=== PATIENT | female | born 1995 ===

== ENCOUNTER 2016-07-26 03:34 | Emergency (ER) | payer MEDICAID ==
[2016-07-26] MEDS ORDERED: Oxycodone/Acetaminophen 5/325 mg Tab PO STA (03:55)
--- NOTE | 2016-07-26 03:58 | ED PDOC ---
HPI: General Adult Time Seen by Provider: 07/26/16 03:56 Chief Complaint (Provider): toothache History Per: Patient History/Exam Limitations: no limitations Additional Complaint(s): 21yo F in ED for eval of tooth ache to upper back molar x 2d-pt has tried naproxen, salt water gargle with limited relief. pt denies fever chills, nausea or vomiting denies sore throat or drainage from gum/bleeding of gums. made appt with dentist 1 week from now. Past Medical History Reviewed: Historical Data, Nursing Documentation, Vital Signs - Medical History PMH: Migraine - Family History Family History: States: Unknown Family Hx - Home Medications Home Medications: Ambulatory Orders Medication Instructions Recorded Oxycodone HCl/Acetaminophen 1 tab PO Q6 PRN #18 tab 09/20/15 [Percocet 325 mg-5 mg] Acetaminophen with Codeine 1 tab PO Q6 #10 tab 07/26/16 [Tylenol with Codeine No. 3 300 mg-30 mg] - Allergies Allergies/Adverse Reactions: Allergies Allergy/AdvReac Type Severity Reaction Status Date / Time No Known Allergies Allergy Verified 09/20/15 05:15 Review of Systems ROS Statement: Except As Marked, All Systems Reviewed And Found Negative ENT: Positive for: Mouth Pain Physical Exam - Reviewed Nursing Documentation Reviewed: Yes Vital Signs Reviewed: Yes - Physical Exam Appears: Positive for: Well, Non-toxic, No Acute Distress Head Exam: Positive for: ATRAUMATIC, NORMAL INSPECTION, NORMOCEPHALIC Skin: Positive for: Normal Color, Warm, DRY ENT: Positive for: Other (mouth:upper back molar no broken dental. no draiange from gums no gum bleeding) Cardiovascular/Chest: Positive for: Regular Rate, Rhythm Respiratory: Positive for: CNT, Normal Breath Sounds Neurologic/Psych: Positive for: Alert, Oriented Medical Decision Making Medical Decision Making: dx: toothache/cavity advised to f.u with dental clinic given T#3 for pain control. made aware its to tret acute pain advised on addictive components of Rx narcotic pt understands. Disposition - Clinical Impression Clinical Impression: Dental caries - Patient ED Disposition Is Patient to be Admitted: No Counseled Patient/Family Regarding: Diagnosis, Need For Followup, Rx Given - Disposition Disposition: Routine/Home Disposition Time: 04:02 Condition: STABLE Prescriptions: Acetaminophen with Codeine [Tylenol with Codeine No. 3 300 mg-30 mg] 1 tab PO Q6 #10 tab Instructions: Dental Caries (ED) Forms: [facility] ED School/Work Excuse
[2016-07-26 04:00] VITALS: BP 131/71; PULSE 103; RESP 16; TEMP 98.2; O2SAT 100
[2016-07-26] MEDS ORDERED: Oxycodone/Acetaminophen 5/325 mg Tab ONE (04:04)
== END 2016-07-26 04:17 | disposition home or self-care (01) ==
LOC: H.ER 03:34
DX: K02.9 Dental caries, unspecified (principal)

== ENCOUNTER 2016-11-13 00:03 | Emergency (ER) | payer MEDICAID ==
[2016-11-13 00:04] VITALS: BMI 21.5
[2016-11-13 00:17] VITALS: BP 123/76; PULSE 95; RESP 16; TEMP 98.6; O2SAT 100
[2016-11-13] MEDS ORDERED: Lidocaine 1% Inj (20ml) IJ STA (01:00)
[2016-11-13] MEDS ORDERED: Lidocaine 1% Inj (20ml) ONE (01:03)
--- NOTE | 2016-11-13 01:19 | ED PDOC ---
HPI: Wound Care - HPI Time Seen by Provider: 11/13/16 00:21 Chief Complaint (Nursing): Finger,Hand,&Wrist Chief Complaint (Provider): left hand 4th digit laceration History Per: Patient History Of Present Illness: 21 y/o female presents with laceration to left hand 4th digit, sustained 1 hour prior to arrival. Patient states she accidentally cut finger with a knife while at work. Denies numbness/weakness left upper extremity, limitation of movement. Tetanus up to date. Past Medical History Reviewed: Historical Data, Nursing Documentation, Vital Signs Vital Signs: Last Vital Signs Temp 98.6 F 11/13/16 00:14 Pulse 95 H 11/13/16 00:14 Resp 16 11/13/16 00:14 BP 123/76 11/13/16 00:14 Pulse Ox 100 11/13/16 00:14 - Medical History PMH: Migraine Denies: Chronic Kidney Disease - Family History Family History: States: Unknown Family Hx - Home Medications Home Medications: Ambulatory Orders Medication Instructions Recorded Oxycodone HCl/Acetaminophen 1 tab PO Q6 PRN #18 tab 09/20/15 [Percocet 325 mg-5 mg] Acetaminophen with Codeine 1 tab PO Q6 #10 tab 07/26/16 [Tylenol with Codeine No. 3 300 mg-30 mg] - Allergies Allergies/Adverse Reactions: Allergies Allergy/AdvReac Type Severity Reaction Status Date / Time No Known Allergies Allergy Verified 11/13/16 00:14 Review of Systems ROS Statement: Except As Marked, All Systems Reviewed And Found Negative Musculoskeletal: Positive for: Hand Pain (left hand 4th digit laceration) Physical Exam - Reviewed Nursing Documentation Reviewed: Yes Vital Signs Reviewed: Yes - Physical Exam Appears: Positive for: Well, Non-toxic, No Acute Distress Head Exam: Positive for: ATRAUMATIC, NORMAL INSPECTION, NORMOCEPHALIC Skin: Positive for: Normal Color Pulses-Radial (L): 2+ Pulses-Radial (R): 2+ Extremity: Positive for: Normal ROM, Other (2 cm "U" skin flap laceration distal sanchez left hand 4th digit. Minimal active bleeding. DIstal NV, motor intact) Neurologic/Psych: Positive for: Alert, Oriented. Negative for: Motor/Sensory Deficits - ECG O2 Sat by Pulse Oximetry: 100 Procedure: Wound Repair - Time Performed Time Performed: 01:00 - Time Out Time Out: Side verified, Site verified, Patient ID confirmed, Sterile procedures obs. - Procedure Procedure: Wound Repair: right 4th digit - Consent Obtained Consent obtained: Verbal - Performed by Performed by: Mid-level Provider - Indications Indication(s):: Laceration - Location Finger:: Right, Ring Dimensions Length cm: 2cm Dimensions width cm: 0.2cm Depth:: Epidermis - Anesthetic Technique Local/Regional Anesthetic:: Lidocaine 1% - Debris Debris:: None - Irrigated Irrigated with ml of normal saline: 200mL - Complexity Complexity:: Simple (one layer) - Wound repair method Sutures:: # (2), Size (4'0), Type (nylon), Technique (interrupted) - Muscle repiar layer closed with Muscle repair layer closed with:: Wound well approximated, Abx ointment applied , Dressing applied, Tetanus up to date - Patient tolerated procedure Patient Tolerated Procedure:: Well Medical Decision Making Medical Decision Making: Patient educated on wound care, suture removal 7-8 days. Neosporin daily. Return to ED for signs of infection as discussed. Disposition - Clinical Impression Clinical Impression: Finger laceration - Patient ED Disposition Is Patient to be Admitted: No Counseled Patient/Family Regarding: Diagnosis, Need For Followup - Disposition Disposition: Routine/Home Disposition Time: 01:21 Condition: GOOD Additional Instructions: Suture removal 7-8 days. Apply neosporin daily. Return to ED for redness/swelling/drainage from site, fever, or other concerning symptoms. Instructions: Laceration (ED), Care For Your Stitches (ED)
== END 2016-11-13 01:30 | disposition home or self-care (01) ==
LOC: H.ER 00:03
DX: S61.215A Laceration without foreign body of left ring finger without damage to nail, initial encounter (principal); W26.0XXA Contact with knife, initial encounter; Y99.0 Civilian activity done for income or pay

== ENCOUNTER 2017-04-22 13:12 | Emergency (ER) | payer MEDICAID ==
[2017-04-22 13:12] VITALS: BMI 21.5
[2017-04-22 13:57] VITALS: RESP 16
[2017-04-22] MEDS ORDERED: Iohexol 240 (50 ml) PO ONE (14:20)
[2017-04-22] MEDS ORDERED: Sodium Chloride 0.9% 1,000 ML IV STA (14:20)
--- NOTE | 2017-04-22 14:20 | ED PDOC ---
HPI: Female Pain Time Seen by Provider: 04/22/17 14:08 Chief Complaint (Nursing): Female Genitourinary Chief Complaint (Provider): Abd pain History Per: Patient History/Exam Limitations: no limitations Onset/Duration Of Symptoms: Days (1 week) Current Symptoms Are (Timing): Still Present Additional Complaint(s): Pt. with urgency of urination for 3 months. No dysuria. Has freq of urination. For 1 week has R lower abd pain. No weakness, back pain, dyspnea, chest pain, headaches, dizziness. No nausea, vomit, diarrhea. No vaginal bleeding. Was dx with uti in Feb but forgot to start antibiotics. Past Medical History Reviewed: Nursing Documentation, Vital Signs Vital Signs: Last Vital Signs Temp 99.4 F 04/22/17 13:49 Pulse 62 04/22/17 13:49 Resp 16 04/22/17 13:49 BP 116/66 04/22/17 13:49 Pulse Ox 100 04/22/17 13:49 - Medical History PMH: Denies: Chronic Kidney Disease - Surgical History Surgical History: No Surg Hx - Family History Family History: States: Unknown Family Hx - Social History Current smoker - smoking cessation education provided: No Alcohol: None Drugs: Denies - Home Medications Home Medications: Ambulatory Orders Medication Instructions Recorded Oxycodone HCl/Acetaminophen 1 tab PO Q6 PRN #18 tab 09/20/15 [Percocet 325 mg-5 mg] Acetaminophen with Codeine 1 tab PO Q6 #10 tab 07/26/16 [Tylenol with Codeine No. 3 300 mg-30 mg] - Allergies Allergies/Adverse Reactions: Allergies Allergy/AdvReac Type Severity Reaction Status Date / Time No Known Allergies Allergy Verified 04/22/17 13:49 Review of Systems ROS Statement: Except As Marked, All Systems Reviewed And Found Negative Gastrointestinal: Positive for: Abdominal Pain Genitourinary Female: Positive for: Frequency Physical Exam - Reviewed Nursing Documentation Reviewed: Yes Vital Signs Reviewed: Yes - Physical Exam Appears: Positive for: Non-toxic, No Acute Distress Head Exam: Positive for: ATRAUMATIC, NORMAL INSPECTION, NORMOCEPHALIC Skin: Positive for: Normal Color, Warm, DRY Eye Exam: Positive for: EOMI, Normal appearance, PERRL ENT: Positive for: Normal ENT Inspection Neck: Positive for: Normal, Painless ROM Cardiovascular/Chest: Positive for: Regular Rate, Rhythm Respiratory: Positive for: CNT, Normal Breath Sounds Gastrointestinal/Abdominal: Positive for: Bowel Sounds, Soft, Tenderness (RLQ) Back: Positive for: Normal Inspection. Negative for: L CVA Tenderness, R CVA Tenderness Extremity: Positive for: Normal ROM. Negative for: Tenderness, Pedal Edema Neurologic/Psych: Positive for: Alert, Oriented - Laboratory Results Result Diagrams: 04/22/17 15:05 04/22/17 15:05 Interpretation Of Abn Labs: no acute - ECG O2 Sat by Pulse Oximetry: 100 - CT Scan/US ct Other Rad Studies (CT/US): Read By Radiologist Other Rad Interpretation: large ovarian cyst L US Other Rad Studies (CT/US): Read By Radiologist Other Rad Interpretation: bleeding cyst - Progress ED Course And Treament: 2107: Stable. AAOx3. Ovarian cyst bleeding. Fu with obgyn. Not likely torsion as there is flow and pain is constant. Wants to leave. Pulled out IV. Disposition - Clinical Impression Clinical Impression: Hemorrhagic ovarian cyst - Patient ED Disposition Is Patient to be Admitted: No Counseled Patient/Family Regarding: Studies Performed, Diagnosis, Need For Followup - Disposition [facility]errals[facility] - 04/23/17 Disposition: Routine/Home Disposition Time: 21:09 Condition: STABLE Additional Instructions: Return if not better in 3 days. Instructions: Ovarian Cyst (ED) Forms: [employer] (Bengali)
[2017-04-22] MEDS ORDERED: Iohexol 240 (50 ml) ONE (14:36)
[2017-04-22 15:16] LABS: BASO % 0.9 % (0.0-2.0); EOS # 0.3 K/uL (0.0-0.7); EOS % 6.1 % (0.0-4.0); HEMOGLOBIN 12.9 g/dL (12.0-16.0); LYMPH % 38.9 % (20.0-40.0); MEAN CELL VOLUME 94.1 fl (81.0-99.0); MEAN CORPUSCULAR HEMOGLOBIN 30.8 pg (27.0-31.0); MEAN CORPUSCULAR HGB CONC 32.8 g/dL (33.0-37.0); MEAN PLATELET VOLUME 7.6 fl (7.2-11.7); MONO # 0.5 K/uL (0.0-0.8); MONO % 10.3 % (0.0-10.0); NEUT # 2.3 K/uL (1.8-7.0); NEUT % 43.8 % (50.0-75.0); RBC 4.18 Mil/uL (3.80-5.20); RED CELL DISTRIBUTION WIDTH 12.9 % (11.5-14.5); WHITE BLOOD COUNT 5.3 K/uL (4.8-10.8)
[2017-04-22 15:21] LABS: VENOUS BLOOD GAS BASE EXCESS 1.2 mmol/L (0.0-2.0); VENOUS BLOOD GAS PCO2 59 mmHg (40-60); VENOUS BLOOD GAS PO2 21 mm/Hg (30-55)
[2017-04-22 15:27] LABS: SQUAMOUS EPITHIAL 1 /hpf (0-5); URINE BILIRUBIN NEGATIVE (NEGATIVE); URINE BLOOD NEGATIVE (NEGATIVE); URINE CLARITY SLIGHTY-CLOUDY (Clear); URINE COLOR YELLOW (YELLOW); URINE GLUCOSE (UA) NEG (Normal); URINE LEUKOCYTE ESTERASE NEG Leu/uL (Negative); URINE NITRATE NEGATIVE (NEGATIVE); URINE PROTEIN NEGATIVE (NEGATIVE); URINE UROBILINOGEN 0.2-1.0 mg/dL (0.2-1.0)
[2017-04-22 15:35] LABS: ALBUMIN 4.7 g/dL (3.5-5.0); ALT/SGPT 37 U/L (9-52); AST/SGOT 36 U/L (14-36); BLOOD UREA NITROGEN 16 mg/dl (7-17); CALCIUM 9.7 mg/dL (8.4-10.2); GFR AFRICAN-AMERICAN > 60; GFR NON-AFRICAN AMERICAN > 60
[2017-04-22 15:44] LABS: ALB/GLOB RATIO 1.3 (1.0-2.1)
--- NOTE | 2017-04-22 18:02 | CT ---
PROCEDURE: CT Abdomen and Pelvis without IV contrast. HISTORY: pain COMPARISON: CT abdomen and pelvis with IV contrast performed 10/08/11 TECHNIQUE: Contiguous axial images of the abdomen and pelvis. Oral contrast was administered. No IV contrast given. Coronal and Sagittal reformats generated. Radiation dose: Total exam DLP = 504.24 mGy-cm. This CT exam was performed using one or more of the following dose reduction techniques: Automated exposure control, adjustment of the mA and/or kV according to patient size, and/or use of iterative reconstruction technique. FINDINGS: There is limited evaluation of the solid organs without the administration of IV contrast. LOWER THORAX: No visible consolidation, pleural effusion, or pneumothorax. LIVER: Unremarkable unenhanced appearance. GALLBLADDER AND BILE DUCTS: Unremarkable unenhanced appearance. PANCREAS: Unremarkable unenhanced appearance. SPLEEN: Unremarkable unenhanced appearance. ADRENALS: Unremarkable unenhanced appearance. KIDNEYS AND URETERS: Punctate less than 2 mm nonobstructing right upper pole renal calculus. No obstructing calculus or hydronephrosis identified. BLADDER: The urinary bladder appears unremarkable. REPRODUCTIVE: Uterus is present. 5.3 cm right adnexal low-density lesion, possibly large adnexal or ovarian cyst; recommend pelvic ultrasound for further evaluation. APPENDIX: The appendix appears within normal limits of caliber. No secondary signs of acute appendicitis. BOWEL: The stomach is nondistended. The bowel loops appear within normal limits of caliber without evidence of intestinal obstruction. Moderate constipation. PERITONEUM: No significant free fluid. No definite free air. LYMPH NODES: Sub cm mesenteric lymph nodes, nonspecific. No bulky lymphadenopathy identified. VASCULATURE: No aortic aneurysm. BONES: No acute osseous abnormality is detected. OTHER FINDINGS: None. IMPRESSION: 5.3 cm right adnexal low-density lesion, possibly large adnexal or ovarian cyst; recommend pelvic ultrasound for further evaluation. Moderate constipation. Sub cm mesenteric lymph nodes, nonspecific. Punctate less than 2 mm nonobstructing right upper pole renal calculus. No hydronephrosis bilaterally.
[2017-04-22 21:21] VITALS: BP 118/78; PULSE 78; TEMP 98; O2SAT 99
--- NOTE | 2017-04-23 15:12 | US ---
HISTORY: vaginal bleeding COMPARISON: None available. TECHNIQUE: Transvaginal FINDINGS: UTERUS: Measures 7.0 x 4.7 x 3.4 cm. Normal in size and appearance. No fibroid or other mass lesion seen. ENDOMETRIUM: Measures 8 mm in diameter. Unremarkable. CERVIX: No cervical abnormality identified. RIGHT OVARY: Measures 6.1 x 4.9 x 3.7 cm. Complex right ovarian mass, likely loculated hemorrhagic cyst, 5.8 x 4.6 x 3.8 cm. No internal flow on color Doppler interrogation. Followup with transvaginal pelvic ultrasound advised to assess for interval resolution. Normal arterial flow demonstrated in the right ovary by Doppler interrogation. LEFT OVARY: Measures 3.6 x 1.8 x 1.6 cm. No solid mass. Normal flow. 10 mm cyst with low-level internal echoes, likely hemorrhagic. FREE FLUID: Minimal free fluid in cul-de-sac OTHER FINDINGS: None. IMPRESSION: Likely hemorrhagic right ovarian cyst 5.8 cm greatest dimension. No evidence of ovarian torsion. Followup with transvaginal pelvic ultrasound examination is advised in 6-8 weeks. Probable hemorrhagic follicular cyst in the left ovary, 10 mm. Trace fluid in cul-de-sac. Otherwise unremarkable. Preliminary interpretation of this examination was reported by [facility] at 8:42 p.m. on 04/22/2017. There is concurrence of this report with the preliminary interpretation.
== END 2017-04-22 21:21 | disposition home or self-care (01) ==
LOC: H.ER 13:12
DX: N83.201 Unspecified ovarian cyst, right side (principal); Z87.440 Personal history of urinary (tract) infections

== ENCOUNTER 2017-09-04 12:50 | Emergency (ER) | payer MEDICAID ==
[2017-09-04 12:50] VITALS: BMI 21.5
--- NOTE | 2017-09-04 13:46 | ED PDOC ---
Lower Extremity Pain/Injury Time Seen by Provider: 09/04/17 13:26 Chief Complaint (Nursing): Lower Extremity Problem/Injury Chief Complaint (Provider): left foot injury History Per: Patient Additional Complaint(s): 22-year-old female presents with pain to left foot status post stepping on a nail about 20 minutes prior to arrival. Patient came right to emergency room. Her tetanus is up-to-date. She has mild localized pain with no numbness or tingling. PMD: none Past Medical History Reviewed: Historical Data, Nursing Documentation, Vital Signs Vital Signs: Last Vital Signs Temp 97.9 F 09/04/17 13:12 Pulse 56 L 09/04/17 13:12 Resp 16 09/04/17 13:12 BP 100/63 09/04/17 13:12 Pulse Ox 98 09/04/17 13:12 - Medical History PMH: No Chronic Diseases - Surgical History Surgical History: No Surg Hx - Family History Family History: States: No Known Family Hx - Living Arrangements Living Arrangements: With Family - Social History Current smoker - smoking cessation education provided: No Alcohol: None Drugs: Denies - Immunization History Hx Tetanus Toxoid Vaccination: Yes - Home Medications Home Medications: Ambulatory Orders Medication Instructions Recorded Oxycodone HCl/Acetaminophen 1 tab PO Q6 PRN #18 tab 09/20/15 [Percocet 325 mg-5 mg] Acetaminophen with Codeine 1 tab PO Q6 #10 tab 07/26/16 [Tylenol with Codeine No. 3 300 mg-30 mg] - Allergies Allergies/Adverse Reactions: Allergies Allergy/AdvReac Type Severity Reaction Status Date / Time No Known Allergies Allergy Verified 09/04/17 13:12 Wells Criteria for PE - Wells Criteria for Pulmonary Embolism Clinical Signs and Symptoms of DVT: No P.E is #1 Diagnosis, or Equally Likely: No Heart Rate >100: No Immobilization at least 3 days;Surgery previous 4 weeks: No Previous, objectively diagnosed PE or DVT: No Hemoptysis: No Malignancy w/treatment within 6 months, or palliative: No Total Score: 0 Review of Systems ROS Statement: Except As Marked, All Systems Reviewed And Found Negative Musculoskeletal: Positive for: Other (puncture wound left foot) Physical Exam - Reviewed Nursing Documentation Reviewed: Yes Vital Signs Reviewed: Yes - Physical Exam Appears: Positive for: Well, Non-toxic, No Acute Distress Skin: Negative for: Rash Eye Exam: Positive for: Normal appearance Extremity: Positive for: Other (Puncture wound noted to plantar aspect of left foot, no active bleeding, no foreign body is visualized) Neurologic/Psych: Positive for: Alert, Oriented - ECG O2 Sat by Pulse Oximetry: 98 Pulse Ox Interpretation: Normal Medical Decision Making Medical Decision Making: Impression: puncture wound to left foot Patient was offered pain medication but she declined. Her tetanus is up-to-date. Puncture wound was cleansed with normal saline and Betadine, bacitracin and gauze wrap applied. Patient was advised to take Motrin for pain as needed, wound care instructions given. Disposition - Clinical Impression Clinical Impression: Puncture wound of foot - Patient ED Disposition Is Patient to be Admitted: No Counseled Patient/Family Regarding: Studies Performed, Diagnosis, Need For Followup - Disposition Referrals: Podiatry Clinic [Outside] Disposition: Routine/Home Disposition Time: 14:33 Condition: STABLE Additional Instructions: KEEP WOUND CLEAN AND DRY. ADVIL FOR PAIN NEEDED. FOLLOW UP NEEDED WITH PODIATRY CLINIC. Instructions: Wound Care (DC) Forms: [employer] (Turkmen)
[2017-09-04] MEDS ORDERED: Bacitracin 500 Units/gm Oint Foilpak UD ONE (14:20)
--- NOTE | 2017-09-04 14:48 | RAD ---
PROCEDURE: Left Foot Radiographs. HISTORY: Trauma COMPARISON: No prior study available for comparison FINDINGS: BONES: No evidence of acute displaced fracture nor dislocation. JOINTS: Joint spaces preserved. SOFT TISSUES: Questionable mild soft tissue swelling plantar surface at the level of the MTP joints. No radiopaque foreign bodies. OTHER FINDINGS: None. IMPRESSION: No evidence of acute displaced fracture nor dislocation. Questionable mild soft tissue swelling plantar surface at the level of the MTP joints. No radiopaque foreign bodies.
[2017-09-04 17:14] VITALS: BP 117/78; PULSE 89; RESP 18; TEMP 98; O2SAT 99
== END 2017-09-04 14:00 | disposition home or self-care (01) ==
LOC: H.ER 12:50
DX: S91.332A Puncture wound without foreign body, left foot, initial encounter (principal); W26.8XXA Contact with other sharp object(s), not elsewhere classified, initial encounter; Y92.89 Other specified places as the place of occurrence of the external cause

== ENCOUNTER 2017-10-26 06:22 | Emergency (ER) | payer MEDICAID ==
[2017-10-26 06:22] VITALS: BMI 21.5
[2017-10-26] MEDS ORDERED: Sodium Chloride 0.9% 1,000 ML IV STA (07:27)
--- NOTE | 2017-10-26 07:32 | ED PDOC ---
HPI: Abdomen Time Seen by Provider: 10/26/17 07:23 Chief Complaint (Nursing): Abdominal Pain Chief Complaint (Provider): abdominal pain History Per: Patient History/Exam Limitations: no limitations Onset/Duration Of Symptoms: Hrs (last night) Current Symptoms Are (Timing): Still Present Location Of Pain/Discomfort: Other (lower) Associated Symptoms: Nausea, Vomiting, Other (urgency). denies: Fever, Chills, Diarrhea, Urinary Symptoms (dysuria, frequency) Additional Complaint(s): Odalys Hernandez is a 22 year old female, with a past medical history of ovarian cysts , who presents to the emergency department complaining of a lower abdominal pain that radiates to the back associated with nausea and vomiting onset since last night. Patient also reports urgency but denies any dysuria, frequency, fever, chills or diarrhea. No further medical complaints. PMD: Manish Henry Past Medical History Reviewed: Historical Data, Nursing Documentation, Vital Signs Vital Signs: Last Vital Signs Temp 99.2 F 10/26/17 06:34 Pulse 97 H 10/26/17 06:34 Resp 18 10/26/17 06:34 BP 100/69 10/26/17 06:34 Pulse Ox 97 10/26/17 07:36 - Medical History PMH: Migraine Denies: Chronic Kidney Disease Other PMH: ovarian cyst - Surgical History Surgical History: No Surg Hx - Family History Family History: States: Unknown Family Hx - Social History Current smoker - smoking cessation education provided: No Alcohol: None Drugs: Denies - Immunization History Hx Tetanus Toxoid Vaccination: Yes - Home Medications Home Medications: Ambulatory Orders Medication Instructions Recorded Oxycodone HCl/Acetaminophen 1 tab PO Q6 PRN #18 tab 09/20/15 [Percocet 325 mg-5 mg] Acetaminophen with Codeine 1 tab PO Q6 #10 tab 07/26/16 [Tylenol with Codeine No. 3 300 mg-30 mg] Ondansetron [Zofran] 4 mg PO Q8H #10 tab 10/26/17 traMADol [Ultram] 50 mg PO Q8 #10 tab 10/26/17 - Allergies Allergies/Adverse Reactions: Allergies Allergy/AdvReac Type Severity Reaction Status Date / Time No Known Allergies Allergy Verified 09/04/17 13:12 Review of Systems ROS Statement: Except As Marked, All Systems Reviewed And Found Negative Constitutional: Negative for: Fever, Chills Gastrointestinal: Positive for: Nausea, Vomiting, Abdominal Pain (lower radiates to the back). Negative for: Diarrhea Genitourinary Female: Positive for: Other (urgency). Negative for: Dysuria, Frequency Physical Exam - Reviewed Nursing Documentation Reviewed: Yes Vital Signs Reviewed: Yes - Physical Exam Appears: Positive for: Non-toxic, No Acute Distress Head Exam: Positive for: ATRAUMATIC, NORMAL INSPECTION, NORMOCEPHALIC Skin: Positive for: Normal Color, Warm, Dry Eye Exam: Positive for: Normal appearance, EOMI, PERRL Neck: Positive for: Painless ROM Cardiovascular/Chest: Positive for: Regular Rate, Rhythm. Negative for: Murmur Respiratory: Positive for: Normal Breath Sounds. Negative for: Respiratory Distress Gastrointestinal/Abdominal: Positive for: Tenderness (mild lower quadrants) Back: Negative for: L CVA Tenderness, R CVA Tenderness Extremity: Positive for: Normal ROM (full ROM on all extremities). Negative for : Deformity, Swelling Neurologic/Psych: Positive for: Alert, Oriented - Laboratory Results Result Diagrams: 10/26/17 07:40 10/26/17 07:40 - ECG O2 Sat by Pulse Oximetry: 97 (RA) Pulse Ox Interpretation: Normal Medical Decision Making Medical Decision Making: Time: 07:23 Initial Impression: abdominal pain Initial Plan: --Abd & Pelvis IV Contrast [CT] --CMP --Urine dipstick --Urine --CBC w/ differential --Toradol 30 mg IVP --Sodium Chloride 1,000 ml IV 150 mls/hr --Zofran Inj 4 mg IVP --Reevaluation ----- Scribe Attestation: Documented by Je Mckeon, acting as a scribe for Aki Hoffman MD. Provider Scribe Attestation: All medical record entries made by the Scribe were at my direction and personally dictated by me. I have reviewed the chart and agree that the record accurately reflects my personal performance of the history, physical exam, medical decision making, and the department course for this patient. I have also personally directed, reviewed, and agree with the discharge instructions and disposition. Disposition - Clinical Impression Clinical Impression: Gastritis, Ovarian cyst - Patient ED Disposition Is Patient to be Admitted: No Counseled Patient/Family Regarding: Studies Performed, Diagnosis, Need For Followup, Rx Given - Disposition Referrals: [facility] [Outside] Disposition: Routine/Home Disposition Time: 10:22 Condition: FAIR Prescriptions: Ondansetron [Zofran] 4 mg PO Q8H #10 tab traMADol [Ultram] 50 mg PO Q8 #10 tab Instructions: Gastritis, Ovarian Cysts Forms: [employer] (German)
[2017-10-26 07:50] LABS: BASO % 0.2 % (0.0-2.0); EOS % 0.6 % (0.0-4.0); HEMOGLOBIN 14.8 g/dL (12.0-16.0); LYMPH # 0.5 K/uL (1.0-4.3); LYMPH % 8.5 % (20.0-40.0); MEAN CELL VOLUME 94.7 fl (81.0-99.0); MEAN CORPUSCULAR HEMOGLOBIN 32.7 pg (27.0-31.0); MEAN CORPUSCULAR HGB CONC 34.5 g/dL (33.0-37.0); MONO # 0.4 K/uL (0.0-0.8); MONO % 6.1 % (0.0-10.0); NEUT % 84.6 % (50.0-75.0); PLATELET COUNT 252 K/uL (130-400); RBC 4.53 Mil/uL (3.80-5.20); RED CELL DISTRIBUTION WIDTH 12.3 % (11.5-14.5); WHITE BLOOD COUNT 5.9 K/uL (4.8-10.8)
[2017-10-26 08:00] LABS: ALB/GLOB RATIO 1.3 (1.0-2.1); ALBUMIN 4.4 g/dL (3.5-5.0); ALT/SGPT 35 U/L (9-52); AST/SGOT 41 U/L (14-36); BLOOD UREA NITROGEN 12 mg/dl (7-17); CALCIUM 9.3 mg/dL (8.4-10.2); GFR AFRICAN-AMERICAN > 60; GFR NON-AFRICAN AMERICAN > 60
[2017-10-26] MEDS ORDERED: Iohexol 300 100 ML IJ ONE (09:31)
[2017-10-26] MEDS ORDERED: Sodium Chloride 0.9% 50 ML IV ONE (09:31)
--- NOTE | 2017-10-26 10:17 | CT ---
Date of service: 10/26/2017 PROCEDURE: CT Abdomen and Pelvis with contrast HISTORY: Abd pain COMPARISON: Abdomen and Pelvis CT with oral contrast only 04/26/2017. TECHNIQUE: Contrast dose: Omnipaque 300, 40 cc Radiation dose: Total exam DLP = 312.53 mGy-cm. This CT exam was performed using one or more of the following dose reduction techniques: Automated exposure control, adjustment of the mA and/or kV according to patient size, and/or use of iterative reconstruction technique. FINDINGS: LOWER THORAX: Unremarkable. LIVER: Unremarkable. No gross lesion or ductal dilatation. GALLBLADDER AND BILE DUCTS: Unremarkable. PANCREAS: Unremarkable. No gross lesion or ductal dilatation. SPLEEN: Unremarkable. ADRENALS: Unremarkable. No mass. KIDNEYS AND URETERS: Unremarkable. No hydronephrosis. No solid mass. VASCULATURE: Unremarkable. No aortic aneurysm. BOWEL: Unremarkable. No obstruction. No gross mural thickening. Air-fluid levels are seen throughout the large bowel suggestive of diarrhea. APPENDIX: Normal retrocecal appendix. PERITONEUM: Unremarkable. No free fluid. No free air. LYMPH NODES: Unremarkable. No enlarged lymph nodes. BLADDER: Unremarkable. REPRODUCTIVE: 3.8 x 2.6 x 3.3 cm right adnexal cyst is suggested diminished in size compared to 5.3 cm lesion right adnexa compartment 04/22/2017. No suspicious left adnexal findings. BONES: No acute fracture. OTHER FINDINGS: None. IMPRESSION: 1. Unopacified bowel may indicate diarrhea as discussed above. No bowel obstruction, mesenteric edema, ascites or free intra peritoneal gas identified. 2. Persistent right adnexal lucency is appreciated but likely diminished in size now measuring 3.8 cm. Consider follow-up transvaginal pelvic ultrasonography.
[2017-10-26 10:29] LABS: LYMPHOCYTE 9 % (20-50); MONOCYTE 7 % (0-10); NEUTROPHIL 84 % (42-75); PLATELET ESTIMATE NORMAL (NORMAL); TOTAL CELLS COUNTED 100
[2017-10-26 11:58] VITALS: BP 128/78; PULSE 78; RESP 19; TEMP 97; O2SAT 98
== END 2017-10-26 11:58 | disposition home or self-care (01) ==
LOC: H.ER 06:22
DX: K29.70 Gastritis, unspecified, without bleeding (principal); N83.209 Unspecified ovarian cyst, unspecified side
CPT/HCPCS: 74177; 80053; 81025; 85025; 96374; 96375; 99284; J1885; J2405; J7030; Q9967

== ENCOUNTER 2018-01-18 00:09 | Emergency (ER) | payer MEDICAID ==
[2018-01-18 00:10] VITALS: BMI 21.5
[2018-01-18 00:32] VITALS: BP 117/71; PULSE 89; TEMP 98.2; O2SAT 96
[2018-01-18] MEDS ORDERED: guaiFENesin DM 200 mg-20 mg/10 ml UD PO STA (00:49)
[2018-01-18] MEDS ORDERED: Albuterol-Ipratrop 3 mg / 0.5 (3 ml) UD INH STA (00:49)
[2018-01-18] MEDS ORDERED: Albuterol-Ipratrop 3 mg / 0.5 (3 ml) UD ONE (01:01)
--- NOTE | 2018-01-18 01:03 | ED PDOC ---
HPI: CCC, URI, Sore Throat Time Seen by Provider: 01/18/18 00:14 Chief Complaint (Nursing): Shortness Of Breath Chief Complaint (Provider): cough, SOB History Per: Patient History/Exam Limitations: no limitations Onset/Duration Of Symptoms: Days (x1 month) Current Symptoms Are (Timing): Still Present Associated Symptoms: Cough Additional Complaint(s): Odalys Hernandez is a 22 year old female, with no significant past medical history, who presents to the emergency department complaining of a dry cough onset for x1 month associated with shortness of breath. Patient has not been taking OTC medications. Patient states symptoms got worst today and was unable to sleep due to cough. She feels warm but is unaware of fever. She has noticed cough is worst in her bedroom and mother believes it may be related to her pet ferrets, but patient has had them for x2 years now. She denies any other medical complaints. PMD: None provided. Past Medical History Reviewed: Historical Data, Nursing Documentation, Vital Signs Vital Signs: Last Vital Signs Temp 98.2 F 01/18/18 00:28 Pulse 89 01/18/18 00:28 Resp 16 01/18/18 00:28 BP 117/71 01/18/18 00:28 Pulse Ox 96 01/18/18 00:28 - Medical History PMH: Migraine Denies: Chronic Kidney Disease - Surgical History Other surgeries: tympanostomy tube as a child - Family History Family History: States: Unknown Family Hx - Social History Current smoker - smoking cessation education provided: No Alcohol: None Drugs: Denies - Immunization History Hx Tetanus Toxoid Vaccination: Yes - Home Medications Home Medications: Ambulatory Orders Medication Instructions Recorded Oxycodone HCl/Acetaminophen 1 tab PO Q6 PRN #18 tab 09/20/15 [Percocet 325 mg-5 mg] Acetaminophen with Codeine 1 tab PO Q6 #10 tab 07/26/16 [Tylenol with Codeine No. 3 300 mg-30 mg] Ondansetron [Zofran] 4 mg PO Q8H #10 tab 10/26/17 traMADol [Ultram] 50 mg PO Q8 #10 tab 10/26/17 Albuterol Sulfate [Proair Hfa] 0.09 mg IH Q6 PRN #1 inh 01/18/18 Benzonatate [Tessalon Perle] 100 mg PO TID PRN #15 capsule 01/18/18 predniSONE [predniSONE Tab] 60 mg PO QAM #12 tab 01/18/18 - Allergies Allergies/Adverse Reactions: Allergies Allergy/AdvReac Type Severity Reaction Status Date / Time No Known Allergies Allergy Verified 01/18/18 00:28 Review of Systems ROS Statement: Except As Marked, All Systems Reviewed And Found Negative Respiratory: Positive for: Cough (dry), Shortness of Breath Physical Exam - Reviewed Nursing Documentation Reviewed: Yes Vital Signs Reviewed: Yes - Physical Exam Appears: Positive for: No Acute Distress Head Exam: Positive for: ATRAUMATIC, NORMAL INSPECTION, NORMOCEPHALIC Skin: Positive for: Normal Color, Warm, Dry Eye Exam: Positive for: Normal appearance, EOMI, PERRL ENT: Positive for: Normal ENT Inspection Neck: Positive for: Painless ROM Cardiovascular/Chest: Positive for: Regular Rate, Rhythm. Negative for: Murmur Respiratory: Positive for: Wheezing (expiratory bilaterally). Negative for: Respiratory Distress Gastrointestinal/Abdominal: Positive for: Normal Exam, Soft. Negative for: Tenderness, Guarding, Rebound Back: Positive for: Normal Inspection. Negative for: L CVA Tenderness, R CVA Tenderness, Vertebral Tenderness Extremity: Positive for: Normal ROM (upper and lower extremities). Negative for: Deformity, Swelling Neurologic/Psych: Positive for: Alert, Oriented - ECG O2 Sat by Pulse Oximetry: 96 (RA) Pulse Ox Interpretation: Normal Medical Decision Making Medical Decision Making: Time: 00:14 Initial Impression: 22 y/o female with wheezing and cough. Initial Plan: --Urine --Chest two views (PA/LAT) --Duoneb 9 ml INH --Robitussin DM 10 ml PO --prednisone Tab 60 mg PO --Reevaluation 01:40 Patient reports marked improvement of symptoms. CXR shows no acute diseases. Diagnosis of bronchitis. ----- Scribe Attestation: Documented by Je Mckeon, acting as a scribe for Robe Murrell MD. Provider Scribe Attestation: All medical record entries made by the Scribe were at my direction and personally dictated by me. I have reviewed the chart and agree that the record accurately reflects my personal performance of the history, physical exam, medical decision making, and the department course for this patient. I have also personally directed, reviewed, and agree with the discharge instructions and disposition. Disposition - Clinical Impression Clinical Impression: Bronchitis - Disposition Disposition: Routine/Home Disposition Time: 01:40 Condition: STABLE Prescriptions: Albuterol Sulfate [Proair Hfa] 0.09 mg IH Q6 PRN #1 inh PRN Reason: Shortness Of Breath Benzonatate [Tessalon Perle] 100 mg PO TID PRN #15 capsule PRN Reason: Cough predniSONE [predniSONE Tab] 60 mg PO QAM #12 tab Instructions: Acute Bronchitis Forms: [facility] (Khmer)
[2018-01-18 01:49] VITALS: RESP 18
--- NOTE | 2018-01-18 09:05 | RAD ---
Date of service: 01/18/2018 HISTORY: cough COMPARISON: No prior. TECHNIQUE: Chest PA and lateral FINDINGS: LUNGS: No active pulmonary disease. PLEURA: No significant pleural effusion identified. No pneumothorax apparent. CARDIOVASCULAR: No atherosclerotic calcification present Normal. OSSEOUS STRUCTURES: No significant abnormalities. VISUALIZED UPPER ABDOMEN: Normal. OTHER FINDINGS: None. IMPRESSION: No acute cardiopulmonary disease appreciated.
== END 2018-01-18 01:54 | disposition home or self-care (01) ==
LOC: H.ER 00:09
DX: J40 Bronchitis, not specified as acute or chronic (principal)

== ENCOUNTER 2018-05-14 17:25 | Emergency (ER) | payer MEDICAID ==
[2018-05-14 17:26] VITALS: BMI 21.5
[2018-05-14 18:10] VITALS: RESP 18; O2SAT 99
[2018-05-14] MEDS ORDERED: Albuterol-Ipratrop 3 mg / 0.5 (3 ml) UD INH STA ×2 (19:31→20:52)
[2018-05-14] MEDS ORDERED: Albuterol-Ipratrop 3 mg / 0.5 (3 ml) UD ONE ×2 (20:18→21:27)
--- NOTE | 2018-05-14 20:37 | ED PDOC ---
HPI: CCC, URI, Sore Throat Time Seen by Provider: 05/14/18 18:42 Chief Complaint (Nursing): Cough, Cold, Congestion Chief Complaint (Provider): Cough and wheezing History Per: Patient History/Exam Limitations: no limitations Current Symptoms Are (Timing): Still Present Additional Complaint(s): 23 year old female presents to the ED stating for the past month, she has had nonproductive cough with intermittent wheezing. She states she normally uses her Albuterol inhaler which improves transient relief. This past week, Albuterol has not worked. Patient is also reporting for the past 3 days, she noticed a small non painful lump on the left breast. Patient states a good number of aunts have been diagnosed with breast cancer. Denies fever, chills, chest pain, hemoptysis, hormonal therapy, leg pain, history of DVT or PE, or nipple discharge. PMD: none provided Past Medical History Reviewed: Historical Data, Nursing Documentation, Vital Signs Vital Signs: Last Vital Signs Temp 98.9 F 05/14/18 18:08 Pulse 88 05/14/18 18:08 Resp 18 05/14/18 18:08 BP 130/89 05/14/18 18:08 Pulse Ox 99 05/14/18 18:08 - Medical History PMH: Migraine Denies: Chronic Kidney Disease - Surgical History Surgical History: No Surg Hx - Family History Family History: States: Other Other Family History: Breast cancer - Social History Current smoker - smoking cessation education provided: Yes Drugs: Denies - Immunization History Hx Tetanus Toxoid Vaccination: Yes - Home Medications Home Medications: Ambulatory Orders Medication Instructions Recorded Oxycodone HCl/Acetaminophen 1 tab PO Q6 PRN #18 tab 09/20/15 [Percocet 325 mg-5 mg] Acetaminophen with Codeine 1 tab PO Q6 #10 tab 07/26/16 [Tylenol with Codeine No. 3 300 mg-30 mg] Ondansetron [Zofran] 4 mg PO Q8H #10 tab 10/26/17 RX: traMADol [Ultram] 50 mg PO Q8 #10 tab 10/26/17 Albuterol Sulfate [Proair Hfa] 0.09 mg IH Q6 PRN #1 inh 01/18/18 Benzonatate [Tessalon Perle] 100 mg PO TID PRN #15 capsule 01/18/18 RX: predniSONE [predniSONE Tab] 60 mg PO QAM #12 tab 01/18/18 Albuterol HFA [Ventolin HFA 90 2 puff IH [id number] PRN #120 puff 05/14/18 mcg/actuation (8 g)] predniSONE [Prednisone] 40 mg PO DAILY #8 tab 05/14/18 - Allergies Allergies/Adverse Reactions: Allergies Allergy/AdvReac Type Severity Reaction Status Date / Time No Known Allergies Allergy Verified 05/14/18 18:08 Review of Systems ROS Statement: Except As Marked, All Systems Reviewed And Found Negative Constitutional: Negative for: Fever, Chills Cardiovascular: Negative for: Chest Pain Respiratory: Positive for: Cough, Wheezing. Negative for: Hemoptysis Musculoskeletal: Negative for: Leg Pain Skin: Negative for: Other (Nipple discharge) Physical Exam - Reviewed Nursing Documentation Reviewed: Yes Vital Signs Reviewed: Yes - Physical Exam Appears: Positive for: No Acute Distress Skin: Positive for: Normal Color, Warm, Dry Cardiovascular/Chest: Positive for: Regular Rate, Rhythm, Other (Bilateral breast: no tenderness, masses, skin changes, or nipple discharge). Negative for: Tachycardia Respiratory: Positive for: Wheezing (Bilateral expiratory wheezing). Negative for: Respiratory Distress Comments: JORGE Guidry present during entire exam - ECG ECG: Positive for: Interpreted By Me ECG Rhythm: Positive for: Sinus Rhythm. Negative for: ST/T Changes Rate: 68 O2 Sat by Pulse Oximetry: 99 (RA) Pulse Ox Interpretation: Normal - Radiology X-Ray: Interpreted by Me (CXR) X-Ray Interpretation: No Acute Disease - Progress Re-evaluation Time: 20:30 (Reports good relief of wheezing. Lungs clear b/l. Encoruaged to stop smoking. Advised to f/u with OBGYN regarding breast pain and to f/u with PMD for further evaluation smoking. ) Condition: Re-examined, Improved Medical Decision Making Medical Decision Making: Initial Impression: Cough and wheezing Initial Plan: --ECG --Chest X-ray --Albuterol 6mL INH --Prednisone 40mg PO --Peak flow Scribe Attestation: Documented by Rober Alvarez acting as a scribe for Mayur ROBERSON. Provider Scribe Attestation: All medical record entries made by the Scribe were at my direction and personally dictated by me. I have reviewed the chart and agree that the record accurately reflects my personal performance of the history, physical exam, medical decision making, and the department course for this patient. I have also personally directed, reviewed, and agree with the discharge instructions and disposition. Disposition - Clinical Impression Clinical Impression: Bronchospasm, Breast mass - Patient ED Disposition Is Patient to be Admitted: No - Disposition [facility] [Outside] Disposition: Routine/Home Disposition Time: 20:40 Condition: IMPROVED Additional Instructions: FOLLOW UP WITH YOUR OBGYN AND YOUR PRIMARY CARE DOCTOR FOR FURTHER EVALUATION RETURN TO ED IMMEDIATELY IF SYMPTOMS WORSEN ADRIAN CAREN, thank you for letting us take care of you today. Your provider was Aki Hoffman MD and you were treated for PAINFUL LUMP TO LEFT /DIFF BREATHING. The emergency medical care you received today was directed at your acute symptoms. If you were prescribed any medication, please fill it and take as directed. It may take several days for your symptoms to resolve. Return to the Emergency Department if your symptoms worsen, do not improve, or if you have any other problems. Please contact your doctor or call one of the physicians/clinics you have been referred to that are listed on the Patient Visit Information form that is included in your discharge packet. Bring any paperwork you were given at discharge with you along with any medications you are taking to your follow up visit. Our treatment cannot replace ongoing medical care by a primary care provider outside of the emergency department. Thank you for allowing the [facility] team to be part of your care today. If you had an X-Ray or CT scan: A Radiologist will review the ED reading if any change in treatment is needed we will contact you. If you had a blood, urine, or wound culture: It will take several days for the results, if any change in treatment is needed we will contact you. If you had an STI test: It will take 48 hours for the results. Please call after 1 week if you have not heard back. Prescriptions: Albuterol HFA [Ventolin HFA 90 mcg/actuation (8 g)] 2 puff IH [id number] PRN #120 puff PRN Reason: Cough predniSONE [Prednisone] 40 mg PO DAILY #8 tab Instructions: Smoking: Not Just Harmful to Your Lungs and Heart, Quitting Smoking for Teens and Young Adults, Asthma, Adult (DC), Mastalgia (DC) Forms: [facility] (Czech) Print Language: BELARUSIAN
[2018-05-14 21:52] VITALS: PULSE 68
[2018-05-14 22:29] VITALS: BP 128/80; TEMP 98.4
--- NOTE | 2018-05-15 08:33 | RAD ---
Date of service: 05/14/2018 HISTORY: cough COMPARISON: No prior. TECHNIQUE: Chest PA and lateral FINDINGS: LUNGS: No active pulmonary disease. PLEURA: No significant pleural effusion identified. No pneumothorax apparent. CARDIOVASCULAR: No aortic atherosclerotic calcification present. Normal cardiac size. No pulmonary vascular congestion. OSSEOUS STRUCTURES: No significant abnormalities. VISUALIZED UPPER ABDOMEN: Normal. OTHER FINDINGS: None. IMPRESSION: No active disease.
--- NOTE | 2018-05-15 13:24 | CARD ---
APPROVED REPORT Date of service: 05/14/2018 EKG Measurement Heart [id number] <Conclusion> Normal sinus rhythm with sinus arrhythmia Normal ECG
== END 2018-05-14 22:30 | disposition home or self-care (01) ==
LOC: H.ER 17:25
DX: J98.01 Acute bronchospasm (principal); N63.0 Unspecified lump in unspecified breast; F17.200 Nicotine dependence, unspecified, uncomplicated